=== PATIENT | male | born 1950 | race Caucasian/White ===

== ENCOUNTER → 2024-10-27 | Outpatient (CLI) | payer MEDICARE, BC, SELFPAY ==
[2024-10-27 11:39] LABS: PSA Medicare Annual Scrn 0.67 ng/mL (0-4.00)
[2024-10-27 11:42] LABS: Thyroid Stimulating Hormone 2.83 uIU/mL (0.55-4.78)
== END | disposition home or self-care (01) ==
PROVIDERS: PCP Internal Medicine; Referring Provider Internal Medicine; Visit Provider Internal Medicine
DX: Z12.5 Encounter for screening for malignant neoplasm of prostate (principal); E03.9 Hypothyroidism, unspecified
CPT/HCPCS: 36415; 84153; 84443; G0103

== ENCOUNTER 2024-12-02 03:49 | Emergency (ER) | payer MEDICARE, SELFPAY ==
[2024-12-02 03:56] VITALS: BP 135/70; PULSE 92; RESP 18; TEMP 36.4; O2SAT 95
--- NOTE | 2024-12-02 04:05 | XR_ITS ---
Examination: Knee, left , 3 views Technique: Knee AP, lateral, oblique 3 views Date and time of exam: Image 27/01/2025 at 0409 hrs. Indications: Injury to the knee today, knee pain Findings: Advanced narrowing [id number] medial joint space Significant osteoarthritis patellofemoral joint No acute fracture Impression: Advanced osteoarthritis No acute fracture
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
[2024-12-02] MEDS: KETOROLAC INJ 60 MG/2 ML VIAL 30 MG IM (04:44)
[2024-12-02 05:58] VITALS: RESP 18
== END 2024-12-02 06:01 | disposition home or self-care (01) ==
PROVIDERS: Emergency Provider Emergency Medicine; PCP Internal Medicine
DX: S83.92XA Sprain of unspecified site of left knee, initial encounter (principal); W08.XXXA Fall from other furniture, initial encounter
CPT/HCPCS: 73562; 96372; 99283; J1885

== ENCOUNTER → 2025-03-21 | Outpatient (CLI) | payer MEDICARE, BC, SELFPAY ==
[2025-03-21 09:09] LABS: Cardiac Risk Estimate 3.6 RATIO (4.0-6.7); Cholesterol 175 mg/dL (132-200); HDL Cholesterol 48 mg/dL (40-60); LDL Cholesterol,Calculated 105 mg/dL (0-130); Thyroid Stimulating Hormone 3.16 uIU/mL (0.55-4.78); Triglycerides 109 mg/dL (30-150)
[2025-03-21 09:52] LABS: Glucose Estimated Average 128 mg/dL (80-131); Hemoglobin A1C 6.1 % Hgb (4.8-6.0)
== END | disposition home or self-care (01) ==
LOC: COPL 08:01
PROVIDERS: PCP Internal Medicine; Referring Provider Internal Medicine Cardiovascular Disease; Visit Provider Internal Medicine
DX: R73.03 Prediabetes (principal); I10 Essential (primary) hypertension; E78.5 Hyperlipidemia, unspecified
CPT/HCPCS: 36415; 80061; 83036; 84443